=== PATIENT | male | born 2000 | race African-American/Black ===

== ENCOUNTER 2021-04-21 10:03 | Emergency (ER) | payer BC ==
[~2021-04-21] VITALS: Ht 190.5 cm; Wt 87.3 kg
[~2021-04-21 10:03] MED LIST: ATARAX50 MG PO
[2021-04-21 10:19] VITALS: BP 124/76; TEMP 97.5
[2021-04-21 11:24] VITALS: PULSE 65
== END 2021-04-21 11:24 | disposition home or self-care (01) ==
LOC: COL.ER 10:03
DX: R25.1 Tremor, unspecified (principal)

== ENCOUNTER → 2021-04-22 | Outpatient (CLI) | payer BC | LOC: COL.RAD 13:43 | DX: R25.3 Fasciculation (principal) | CPT/HCPCS: A9585 ==